=== PATIENT | female | born 1950 | race Caucasian/White ===

== ENCOUNTER → 2018-03-19 08:15 | Outpatient (CLI) | payer BC, SELFPAY ==
--- NOTE | 2018-03-19 08:50 | RAD_ITS ---
STUDY: X-RAY - ESOPHAGUS (BARIUM SWALLOW) WITH FLUOROSCOPY REASON FOR EXAM: Female, 67 years old. Dysphagia. TECHNIQUE: 14 view(s) of the esophagus were obtained following swallowing of barium. FLUOROSCOPY TIME (if supplied): (0:38) minutes/seconds COMPARISON: None. FINDINGS: There is no demonstrated esophageal foreign body. There is no demonstrated stricture or mucosal abnormality. Normal gastroesophageal junction, without a demonstrated hiatal hernia. There is atherosclerotic calcification of the aortic arch with tortuosity of the descending aorta. Normal visualized pulmonary parenchyma. There are diffuse degenerative changes of the visualized thoracic spine. RAD/Esophagus Only IMPRESSION: Normal plain film x-ray examination (barium swallow) of the esophagus. Electronically Signed: Goran Cifuentes MD at 13:54 EST Tel [phone], Service support ,
== END ==
PROVIDERS: Family Provider Family Medicine; PCP Family Medicine; Referring Provider Family Medicine; Visit Provider Family Medicine
DX: R13.10 Dysphagia, unspecified (principal)
CPT/HCPCS: 74220

== ENCOUNTER → 2018-04-30 11:25 | Outpatient (CLI) | payer BC, SELFPAY ==
[2018-04-30 15:16] LABS: Absolute Neutrophil Count 3.1 X10^3/uL (2.0-7.7); Basophil# 0.03 X10^3/uL; Basophil% 0.4 % (0-1); Eosinophil# 0.17 X10^3/uL; Eosinophils% 2.4 % (0-5); Hematocrit 49.4 % (37-47); Hemoglobin 15.6 g/dl (12.0-15.0); Lymphocyte % 46.7 % (19-41); Mean Corp Hgb Conc 31.6 g/gl (32-36); Mean Corpuscular Hgb 29.7 pg (27.0-32.0); Mean Corpuscular Volume 93.9 fL (81-99); Mean Platelet Vol. 10.3 fl (6.2-12.0); Monocyte# 0.48 X10^3/uL; Monocyte% 6.8 % (0-10); Neutrophil # 3.07 X10^3/uL (2.7-7.7); Neutrophil % 43.6 % (47-70); Platelet Count 352 K/mm3 (150-450); RBC Distribution Width CV 13.7 % (11.6-14.6); RBC Distribution Width SD 46.6 fl (35.1-43.9); Red Blood Count 5.26 M/mm3 (4.2-5.4); White Blood Count 7.1 K/mm3 (4.4-11.0)
[2018-04-30 15:19] LABS: POSITIVE COUNT NO; POSITIVE DIFFERENTIAL NO; POSITIVE MORPHOLOGY NO
[2018-04-30 15:32] LABS: Vitamin D,25 Hydroxy 16.2 ng/mL (29.95-100.01)
[2018-04-30 15:35] LABS: BUN 13 mg/dL (7-18); Creatinine, Serum 0.83 mg/dL (0.55-1.02); EST Glomerular Filtration Rate 73 mL/min (>60); Glucose 92 mg/dL (74-106)
[2018-04-30 15:36] LABS: Anion Gap 7 (5-15); BUN/Creat Ratio 15.7 RATIO (10-20); Calcium,Total 9.2 mg/dL (8.5-10.1); Chloride 106 mmol/L (98-107); Cholesterol 251 mg/dL (200); Est Glom Filt Rate - Afr Amer 89 mL/min (>60); High Density Lipoprotein 57 mg/dL; Potassium 3.9 mmol/L (3.5-5.1); Sodium Level 138 mmol/L (136-145); Thyroid Stim Hormone (TSH) 2.75 uIU/mL (0.358-3.74); Triglycerides 128 mg/dL; Very Low Density Lipoprotein 26 mg/dL (5-40)
[2018-05-02 17:14] LABS: HPV Reflexed? NOT INDICATED
== END ==
PROVIDERS: Family Provider Family Medicine; PCP Family Medicine; Referring Provider Family Medicine; Visit Provider Family Medicine
DX: Z01.419 Encounter for gynecological examination (general) (routine) without abnormal findings (principal); E78.00 Pure hypercholesterolemia, unspecified; R53.83 Other fatigue
CPT/HCPCS: 36415; 80048; 80061; 82306; 84443; 85025; 88175; G0145

== ENCOUNTER → 2018-06-01 15:35 | Outpatient (CLI) | payer BC, SELFPAY ==
--- NOTE | 2018-06-01 15:46 | BI_ITS ---
MAMMOGRAPHY - BILATERAL SCREENING REASON FOR EXAM: Female, 67 years old. Routine annual screening examination. PERTINENT HISTORY: Sister with breast cancer. TECHNIQUE: Digital bilateral breast keila (3D mammographic acquisition) in the CC and MLO projections. 2-D mediolateral oblique (MLO) and craniocaudad (CC) views of both breasts were obtained. CAD: Full Field Digital Mammography with Computer Added Detection was performed. COMPARISON: Comparison is made with prior study dated May 02, 2016 and April 13, 2015. FINDINGS: Breast Composition: There are scattered areas of fibroglandular density. There are no dominant masses or suspicious calcifications. No other significant abnormalities are identified. There has been no significant change since the prior study. BI/SCREENING MAMM (CAD), BILAT IMPRESSION: Stable bilateral screening mammogram. Yearly follow-up mammogram recommended. (A) ASSESSMENT CATEGORY: BIRADS Category 1: Negative. A letter regarding these results will be sent to the patient by the facility within 30 days. Approximately 10% of breast cancers are not detected by mammography. A normal mammogram should not delay biopsy of a clinically suspicious abnormality. [id number] Electronically Signed: Goran Cifuentes, at 8:50 EDT , Service support ,
== END ==
PROVIDERS: Family Provider Family Medicine; PCP Family Medicine; Referring Provider Family Medicine; Visit Provider Family Medicine
DX: Z12.31 Encounter for screening mammogram for malignant neoplasm of breast (principal); Z80.3 Family history of malignant neoplasm of breast
CPT/HCPCS: 77063; 77067

== ENCOUNTER 2018-10-18 10:08 | Emergency (ER) | payer BC, SELFPAY ==
[2018-10-18 10:09] VITALS: BP 166/84; PULSE 85; RESP 18; TEMP 36.4; O2SAT 97; BMI 35.0
--- NOTE | 2018-10-18 10:19 | CT_ITS ---
STUDY: CT ABDOMEN AND PELVIS WITHOUT CONTRAST REASON FOR EXAM: Female, 67 years old. Epigastric and abdominal pain. RADIATION DOSAGE (If Supplied By Facility): CTDIvol = ( 13.34 ) mGy, DLP = ( 667.94 ) mGycm TECHNIQUE: Transaxial images were obtained from the dome of the diaphragm to the symphysis pubis without oral contrast, and without intravenous contrast. Sagittal and coronal images were reconstructed. Individualized dose optimization techniques were used for this CT. COMPARISON: None. FINDINGS: Mild scarring and localized bronchiectasis in the posterior medial segment of the right lower lobe. There is a noncalcified 5 mm nodule in the peripheral lateral aspect of the left lower lobe. The visualized portions of the heart are within normal limits. Normal liver. Normal gallbladder and extrahepatic biliary system. Normal spleen. Normal pancreas. Normal bilateral adrenal glands. Normal right kidney. Normal left kidney. There is a small hiatal hernia. Normal small intestine. Normal colon. The appendix is visualized and appears normal. There is scattered atherosclerotic calcification of the abdominal aorta, without a demonstrated aneurysm. Normal inferior vena cava. There is borderline retroperitoneal lymphadenopathy with enlarged nodes no greater than 10mm in the short axis diameter. Normal urinary bladder. Normal abdominal wall. Normal osseous structures. CT/Abdomen/Pelvis without Cont IMPRESSION: Small hiatal hernia. 5 mm noncalcified nodule in the left lower lobe. Electronically Signed: Goran Cifuentes, at 11:30 EDT , Service support ,
--- NOTE | 2018-10-18 10:20 | EKG12_ITS ---
Test Reason : EPIGASTRIC PAIN Blood Pressure : / mmHG Vent. Rate : 074 BPM Atrial Rate : 074 BPM P-R Int : 196 ms QRS Dur : 088 ms QT Int : 400 ms P-R-T Axes : 061 -22 039 degrees QTc Int : 444 ms Normal sinus rhythm Normal ECG Confirmed by LONNIE DOE, MEREDITH ([id number]), proposal editor JUSTINO RODRIGUEZ ([id number]) on 10/22/2018 12:56:33 PM Referred By: CHUCK Confirmed By:URIAH FLEMING MD
--- NOTE | 2018-10-18 10:21 | ED.VIS.GEN ---
History of Present Illness Chief Complaint: Abd Pain Informant: Patient Onset: Hours - 11 Context: Gradual Onset Timing: Continuous Current Severity: Moderate Maximum Severity: Moderate Narrative: She presents with epigastric pain for the past 11 hours. It woke her up from sleep. She denies fever or chills. She does have some radiation into her back bilaterally. She does not describe a tearing sensation. She has no chest pain or shortness of breath. No recent fever or chills she denies any diarrhea or constipation. No urinary symptoms. She has no right upper quadrant pain. Most pain is in the epigastric region. It is achy and constant noncolicky. Past Medical History - Allergies and Home Meds Allergies/Adverse Reactions: Allergies No Known Allergies Allergy (Verified 10/18/18 10:10) Primary Care Physician: Eris Green MD [Primary Care Provider] - Past Medical History: None Surgical History: noncontributory Lives: Spouse/ Significant Other Smoking Status: Never smoker Alcohol: None Review of Systems All systems negative except as indicated General: Denies: Fever Cardiovascular: Denies: Chest pain Respiratory: Denies: Dyspnea, Cough Gastrointestinal: Reports: Abdominal pain, Nausea, Vomiting. Denies: Diarrhea, Constipation Genitourinary: Denies: Dysuria, Hematuria Musculoskeletal: Reports: Back pain. Denies: Neck pain, Extremity Pain Skin: Denies: Rash Neurological: Denies: Headache, Weakness Physical Exam Vital Signs/Narrative: Vital Signs Temp Pulse Resp BP Pulse Ox 10/18/18 10:09 97.5 F L 85 18 166/84 H 97 Inital Vital Signs reviewed: Yes General: Well nourished, Well developed, - - He is sitting comfortably on the cot Head: Normocephalic ENT: Dry mucous membranes Neck: Supple, Nontender Cardiovascular: Regular rate, Regular rhythm, No murmurs Respiratory: No distress, CTA bilaterally, Chest nontender Abdomen: Soft, - - There is epigastric tenderness without any guarding or rebound. No right upper quadrant pain. Negative Rae's. Back: - - There is bilateral tenderness in the mid back region I cannot reproduce it. CVA tenderness Extremities: Nontender, No edema Skin: Normal color, No rash Neurological: Alert, Normal Strength, Normal Sensation Psychological: Normal affect Diagnostic/Tx/Re-eval - Rhythm Strip Rhythm Strip: Sinus Rhythm Rate: 74 Ectopy: None - EKG Initial EKG Interpretation: Sinus Rhythm, No Acute Injury Pattern, - - nl ST. Normal TX intervals normal QTC. Interpreted by emergency doctor - Medical Decision Making Patient has an unremarkable work-up other than mild pancreatitis. After fluids she is significantly improved. I believe it is reasonable for her to be discharged. I had a long conversation with her she does not drink alcohol, there is no evidence of gallbladder disease, she does take quite a few multivitamins I told her to stop since there may be some that can cause pancreatitis. Otherwise I am not finding a source. I will refer to GI, she can stay on a liquid diet and I will discharge her in stable condition. She will receive analgesia and antiemetics for home. ED Disposition - Plan for ED Patient: Disposition: Home or Assisted Living Diagnosis: Pancreatitis Instructions: Understanding Pancreatitis Prescriptions: Oxycodone HCl/Acetaminophen [Percocet 10-325 mg Tablet] 1 tab PO Q6H PRN PRN 3 Days #12 tab PRN Reason: Pain Prescription Printed Ondansetron [Zofran Odt] 4 mg PO Q8H PRN PRN #12 tab PRN Reason: Nausea Prescription Printed Referrals: Sergio Monaco MD [NON-STAFF] - 3-5 Days
--- NOTE | 2018-10-18 10:34 | ED.RN ---
NO OLD EKG
[2018-10-18] MEDS: Morphine 4 MG/ML Syringe IV (10:37)
[2018-10-18] MEDS: Ondansetron 4 MG/2 ML Vial IV ×2 (10:37→11:55)
[2018-10-18 10:55] LABS: Absolute Lymphocyte Count 1.65 X10^3/uL (0.83-4.51); Absolute Neutrophil Count 7.7 X10^3/uL (2.0-7.7); Basophil# 0.03 X10^3/uL; Basophil% 0.3 % (0-1); Eosinophil# 0.02 X10^3/uL; Eosinophils% 0.2 % (0-5); Hematocrit 43.9 % (37-47); Hemoglobin 14.6 g/dL (12.0-15.0); Lymphocyte # 1.65 X10^3/ul (4.0); Lymphocyte % 16.8 % (19-41); Mean Corp Hgb Conc 33.3 g/dL (32-36); Mean Corpuscular Volume 90.3 fL (81-99); Mean Platelet Vol. 9.4 fl (6.2-12.0); Monocyte# 0.45 X10^3/uL; Monocyte% 4.6 % (0-10); NRBC Flagged by Analyzer 0 % (0-5); Neutrophil # 7.66 X10^3/uL (2.7-7.7); Neutrophil % 77.9 % (47-70); Platelet Count 292 K/mm3 (150-450); RBC Distribution Width SD 42.9 fl (35.1-43.9); Red Blood Count 4.86 M/mm3 (4.2-5.4); White Blood Count 9.8 K/mm3 (4.4-11.0)
[2018-10-18 11:15] LABS: ALB/GLOB Ratio 0.9 RATIO (0.9-2.4); AST(SGOT) 21 U/L (15-37); Alanine Aminotransfer ALT/SGPT 30 U/L (13-56); Albumin, Serum 3.5 g/dL (3.2-5.0); Alkaline Phosphatase 89 U/L (45-117); Anion Gap 7 (5-15); BUN 9 mg/dL (7-18); BUN/Creat Ratio 14.2 RATIO (10-20); Calcium,Total 8.9 mg/dL (8.5-10.1); Chloride 106 mmol/L (98-107); Creatinine, Serum 0.63 mg/dL (0.55-1.02); EST Glomerular Filtration Rate 99 mL/min (>60); Est Glom Filt Rate - Afr Amer 120 mL/min (>60); Estimated Creatinine Clearance 47.14 ml/min; Globulin 3.8 g/dL (2.2-4.2); Glucose 115 mg/dL (74-106); Lipase 908 U/L (73-393); Potassium 3.6 mmol/L (3.5-5.1); Protein, Total 7.3 g/dL (6.4-8.2); Sodium Level 139 mmol/L (136-145)
[2018-10-18] MEDS: HYDROmorphone 1 MG/ML Syringe IV (11:55)
[2018-10-18 12:45] VITALS: BP 162/74; PULSE 72; RESP 15
== END 2018-10-18 12:45 | disposition home or self-care (01) ==
PROVIDERS: Emergency Provider Emergency Medicine; Family Provider Family Medicine; PCP Family Medicine
DX: K85.90 Acute pancreatitis without necrosis or infection, unspecified (principal)
CPT/HCPCS: 74176; 80053; 83690; 84484; 85025; 93005; 96374; 96375; 96376; 99283; A4216; J2405

== ENCOUNTER → 2018-11-28 09:05 | Outpatient (CLI) | payer BC, SELFPAY ==
--- NOTE | 2018-11-28 09:09 | US_ITS ---
STUDY: ABDOMINAL ULTRASOUND REASON FOR EXAM: Female, 67 years old. Elevated LFTs TECHNIQUE: Transabdominal ultrasound was performed with real-time and static pardo scale imaging. TECHNICAL QUALITY: Adequate. COMPARISON: None. FINDINGS: Liver: The liver measures 17.4 cm. There is normal echogenicity of the liver. The bile ducts are within normal limits. There is hepatic color flow. The direction of portal flow is hepatopetal. There is no demonstrated mass lesion. Portal vein measurement: Gallbladder: There is a contracted gallbladder. The gallbladder wall measures 5 mm. There is a negative sonographic Rae's sign. There is no pericholecystic fluid. There are multiple echogenic structures within the gallbladder, consistent with multiple gallstones. Common Bile Duct (C.B.D.): The common bile duct measures 7 mm. Pancreas: Visualized pancreas is sonographically normal Spleen: Normal size of the spleen. The spleen measures 11 cm. Right Kidney: Normal size of the right kidney. The right kidney measures 11.9 x 4.8 x 4.4 cm cm. Normal renal cortex. The right cortex measures 1.8 cm. There is no demonstrated renal mass or cyst. There is no right hydronephrosis. Left Kidney: Normal size of the left kidney. The left kidney measures 10.2 x 4.2 x 5.3 cm. Normal renal cortex. The left cortex measures 1.4 cm. There is no demonstrated renal mass or cyst. There is no left hydronephrosis. Aorta: Tapers normally I.V.C.: The IVC is patent. There is no ascites. US/Abdomen Complete IMPRESSION: Contracted gallbladder containing shadowing gallstones and wall thickening. Findings are suspicious for cholecystitis.. Please correlate with lab results and surgical consultation recommended Electronically Signed: Kyree Escamilla MD at 17:00 EDT , Service support ,
== END ==
PROVIDERS: Referring Provider Internal Medicine Gastroenterology; Visit Provider Internal Medicine Gastroenterology
DX: R10.9 Unspecified abdominal pain (principal); K85.90 Acute pancreatitis without necrosis or infection, unspecified
CPT/HCPCS: 76700

== ENCOUNTER 2018-12-09 23:25 | Emergency (ER) | payer BC, SELFPAY ==
[2018-12-09 23:27] VITALS: BP 161/85; PULSE 77; RESP 15; TEMP 36.6; O2SAT 95; BMI 34.6
--- NOTE | 2018-12-10 00:16 | ED.VISSUMM ---
- ER Visit Summary Date of Service: 12/10/18 Chief Complaint: Abdominal pain History of Present Illness: The patient is a 67 F who presents with abdominal pain that became worse today. Patient states that she is scheduled to have a cholecystectomy on [address] Lozano. Patient states the pain became worse tonight. Patient states the pain is over the epigastric area and radiates into her back. Patient describes the pain as aching. Patient admits to some nausea and vomiting. Patient denies any hematemesis or coffee-ground emesis. Patient states she only had 2 episodes of vomiting tonight. Patient denies any diarrhea, melena, or hematochezia. Patient denies any dysuria or hematuria. Physical Examination: Vital signs are stable except for an elevated blood pressure of 161/85. Patient is afebrile. Patient is in no acute distress. Oral mucosa is pink and moist. Neck is supple. Trachea is midline. There is no JVD noted. Heart was regular rate and rhythm. Lungs are clear and equal bilaterally. Abdomen is soft. Bowel sounds are normal. There is epigastric tenderness. There is no rebound or guarding noted. Cranial nerves II through XII are intact. There are no focal motor or sensory deficits noted. Test Results: CBC, comprehensive metabolic profile, and lipase were obtained. ALT was slightly elevated at 71 and AST was slightly elevated at 47. The remaining labs are within normal limits. Emergency Department Course and Treatment: Patient was given a dose of morphine and Zofran here. Patient states her pain was improved but not resolved. Patient was advised to follow-up with her surgeon in 5 to 7 days. Patient was instructed to avoid fried, fatty, and greasy foods. Patient understood and was agreeable with the plan. Patient states she has Percocet at home but that upset her stomach. Patient will be given a prescription for [place]. Patient and family understood and were agreeable with the plan. All questions were answered. Disposition: Discharge home Impression: Epigastric abdominal pain This note was generated with [employer] dictation software. It may contain incorrect words, spelling, and punctuation that were not noted in review of the chart prior to signing ED Disposition - Plan for ED Patient: Disposition: Home or Assisted Living Diagnosis: Epigastric abdominal pain Instructions: BILIARY COLIC with Gallstone (Confirmed) Referrals: Care Physician,No Primary [Primary Care Provider] - Freddie Lozano MD [STAFF PHYSICIAN] - 5-7 Days
[2018-12-10] MEDS: Morphine 4 MG/ML Syringe IV ×2 (00:43→02:00)
[2018-12-10] MEDS: 0.9% Normal Saline 1,000 ML 1000 ML IV (00:43)
[2018-12-10] MEDS: Ondansetron 4 MG/2 ML Vial IV (00:43)
[2018-12-10 00:44] LABS: Absolute Lymphocyte Count 2.58 X10^3/uL (0.83-4.51); Absolute Neutrophil Count 7.5 X10^3/uL (2.0-7.7); Basophil# 0.04 X10^3/uL; Basophil% 0.4 % (0-1); Eosinophils% 1.8 % (0-5); Hematocrit 46.6 % (37-47); Lymphocyte # 2.58 X10^3/ul (4.0); Lymphocyte % 23.5 % (19-41); Mean Corp Hgb Conc 32.2 g/dL (32-36); Mean Corpuscular Hgb 29.8 pg (27.0-32.0); Mean Corpuscular Volume 92.5 fL (81-99); Mean Platelet Vol. 9.4 fl (6.2-12.0); Monocyte# 0.63 X10^3/uL; Monocyte% 5.7 % (0-10); NRBC Flagged by Analyzer 0 % (0-5); Neutrophil # 7.49 X10^3/uL (2.7-7.7); Neutrophil % 68.3 % (47-70); Platelet Count 334 K/mm3 (150-450); RBC Distribution Width CV 13.4 % (11.6-14.6); RBC Distribution Width SD 45.3 fl (35.1-43.9); Red Blood Count 5.04 M/mm3 (4.2-5.4)
[2018-12-10 00:57] LABS: ALB/GLOB Ratio 0.9 RATIO (0.9-2.4); AST(SGOT) 47 U/L (15-37); Alanine Aminotransfer ALT/SGPT 71 U/L (13-56); Albumin, Serum 3.7 g/dL (3.2-5.0); Alkaline Phosphatase 109 U/L (45-117); Anion Gap 8 (5-15); BUN 19 mg/dL (7-18); BUN/Creat Ratio 18.8 RATIO (10-20); Calcium,Total 9.6 mg/dL (8.5-10.1); Chloride 102 mmol/L (98-107); Creatinine, Serum 1.01 mg/dL (0.55-1.02); EST Glomerular Filtration Rate 58 mL/min (>60); Est Glom Filt Rate - Afr Amer 70 mL/min (>60); Estimated Creatinine Clearance 46.67 ml/min; Globulin 3.9 g/dL (2.2-4.2); Glucose 132 mg/dL (74-106); Lipase 142 U/L (73-393); Potassium 3.8 mmol/L (3.5-5.1); Protein, Total 7.6 g/dL (6.4-8.2); Sodium Level 140 mmol/L (136-145)
[2018-12-10 02:04] VITALS: BP 135/74; PULSE 75; PULSE 78; RESP 16; O2SAT 99
== END 2018-12-10 02:20 | disposition home or self-care (01) ==
PROVIDERS: Emergency Provider Emergency Medicine
DX: R10.13 Epigastric pain (principal); R11.2 Nausea with vomiting, unspecified; J34.89 Other specified disorders of nose and nasal sinuses; M54.9 Dorsalgia, unspecified
CPT/HCPCS: 80053; 83690; 85025; 96361; 96374; 96375; 96376; 99283; J7030; A4216; J2405

== ENCOUNTER 2018-12-25 08:53 | Emergency (ER) | payer BC, SELFPAY ==
[2018-12-25 08:54] VITALS: BP 154/90; PULSE 74; RESP 16; TEMP 36.3; O2SAT 96; BMI 34.3
--- NOTE | 2018-12-25 09:03 | EKG12_ITS ---
Test Reason : ABD PAIN Blood Pressure : / mmHG Vent. Rate : 072 BPM Atrial Rate : 072 BPM P-R Int : 186 ms QRS Dur : 100 ms QT Int : 416 ms P-R-T Axes : 059 -01 053 degrees QTc Int : 455 ms Normal sinus rhythm Low voltage QRS Incomplete right bundle branch block Borderline ECG Confirmed by GUIDO DOE, NATALIIA ([id number]), desk editor WILLIAM TOPETE ([id number]) on 12/28/2018 10:53:01 AM Referred By: ARUNA Confirmed By:NATALIIA LORA MD
[2018-12-25] MEDS: 0.9% Normal Saline 1,000 ML 125 ML IV (09:38)
[2018-12-25] MEDS: Ondansetron 4 MG/2 ML Vial IV ×2 (09:38→12:04)
[2018-12-25] MEDS: HYDROmorphone 1 MG/ML Syringe IV ×2 (09:40→12:04)
[2018-12-25 09:50] LABS: Absolute Lymphocyte Count 1.22 X10^3/uL (0.83-4.51); Absolute Neutrophil Count 7.9 X10^3/uL (2.0-7.7); Basophil# 0.02 X10^3/uL; Basophil% 0.2 % (0-1); Hematocrit 46.2 % (37-47); Hemoglobin 15.1 g/dL (12.0-15.0); Lymphocyte # 1.22 X10^3/ul (4.0); Lymphocyte % 12.9 % (19-41); Mean Corp Hgb Conc 32.7 g/dL (32-36); Mean Corpuscular Hgb 29.7 pg (27.0-32.0); Mean Corpuscular Volume 90.8 fL (81-99); Mean Platelet Vol. 9.5 fl (6.2-12.0); Monocyte# 0.24 X10^3/uL; Monocyte% 2.5 % (0-10); NRBC Flagged by Analyzer 0 % (0-5); Neutrophil # 7.88 X10^3/uL (2.7-7.7); Neutrophil % 83.6 % (47-70); Platelet Count 314 K/mm3 (150-450); RBC Distribution Width CV 12.9 % (11.6-14.6); RBC Distribution Width SD 43.3 fl (35.1-43.9); Red Blood Count 5.09 M/mm3 (4.2-5.4); White Blood Count 9.4 K/mm3 (4.4-11.0)
[2018-12-25 10:10] LABS: AST(SGOT) 19 U/L (15-37); Alanine Aminotransfer ALT/SGPT 21 U/L (13-56); Albumin, Serum 3.8 g/dL (3.2-5.0); Alkaline Phosphatase 93 U/L (45-117); Anion Gap 7 (5-15); BUN 11 mg/dL (7-18); BUN/Creat Ratio 16.3 RATIO (10-20); Calcium,Total 8.9 mg/dL (8.5-10.1); Chloride 104 mmol/L (98-107); Creatinine, Serum 0.67 mg/dL (0.55-1.02); EST Glomerular Filtration Rate 92 mL/min (>60); Est Glom Filt Rate - Afr Amer 112 mL/min (>60); Estimated Creatinine Clearance 47.14 ml/min; Globulin 3.9 g/dL (2.2-4.2); Glucose 134 mg/dL (74-106); Lipase 102 U/L (73-393); Potassium 3.6 mmol/L (3.5-5.1); Protein, Total 7.7 g/dL (6.4-8.2); Sodium Level 138 mmol/L (136-145)
--- NOTE | 2018-12-25 11:58 | ED.DCSUM_ITS ---
- ER Visit Summary Date of Service: 12/25/18 Chief Complaint: [Abdominal pain] History of Present Illness: The patient is a 67 F [presents the emergency department complaint of abdominal pain since yesterday. Patient describes the pain is epigastric and around both sides of her back. Patient has had nausea and vomited x2 with it. She denies any fever. Patient tells me that she is scheduled to have her gallbladder removed tomorrow at [facility] by Dr. Freddie Lozano. Patient states this is the same pain she is been dealing with for months. Patient within the last several months has had an ultrasound of the gallbladder that showed a thickened gallbladder wall and gallstones. Patient also had a CT scan of her abdomen and pelvis. Patient has no medical history otherwise. Patient currently rates her pain a 9 out of 10.] Physical Examination: [HEENT-PERRLA, EOMI. Cranial nerves II through XII grossly intact. TMs clear. Mucous membranes moist. No adenopathy. Cardiovascular-regular rate and rhythm without murmur or ectopy Lungs-clear to auscultation, chest wall stable without crepitus or subcu emphysema Abdomen-normoactive bowel sounds, soft. Patient has epigastric tenderness on palpation. Patient has some guarding. There is no rebound, rigidity, or perineal signs. Patient has a positive Rae sign. Extremities-intact ?4, normal range of motion, normal pulses, atraumatic] Test Results: [CBC with differential obtained was normal. EKG obtained arrival shows sinus rhythm with a ventricular rate of 71 bpm with incomplete right bundle branch block. Chemistries unremarkable. LFTs normal. Lipase was 102. Troponin is less than 0.15.] Emergency Department Course and Treatment: [She was medicated with Dilaudid and Zofran and she had good pain relief with pain going down to about a 3 out of 10. Patient was given 1 more milligram of Dilaudid 1 mg IV. I did discuss case with patient's surgeon who felt that if patient felt comfortable waiting till tomorrow for her surgeries and she could go home with her oxycodone. Patient is comfortable with going home and having her surgery done tomorrow. Patient is currently comfortable. She is had no further vomiting.] Treatment Plan: [The cystectomy to be performed tomorrow. Patient to use her hydrocodone for pain.] Disposition: [Discharged home in stable condition.] Impression: [Biliary colic Abdominal pain] This note was generated with [employer] dictation software. It may contain incorrect words, spelling, and punctuation that were not noted in review of the chart prior to signing ED Disposition - Plan for ED Patient: Referrals: Care Physician,No Primary [Primary Care Provider] -
--- NOTE | 2018-12-25 12:02 | ED.DEP ---
ED Disposition - Plan for ED Patient: Instructions: BILIARY COLIC with Gallstone (Confirmed) Referrals: Care Physician,No Primary [Primary Care Provider] - Freddie Lozano MD [STAFF PHYSICIAN] - 1 Day
--- NOTE | 2018-12-25 12:44 | ED.RN ---
REVIEWED D/C INSTRUCTIONS, FOLLOW UP CARE, AND S/S THAT WOULD WARRANT A RETURN TO THE ED WITH PT. PT VERBALIZED AN UNDERSTANDING AND DENIES FURTHER QUESTIONS FOR THIS RN. PT SKIN P/W/D, RESP EVEN AND UNLABORED, PT A&O X 3, NO DISTRESS NOTED. PT AMBULATED OUT OF ED, GAIT STEADY.
[2018-12-25 12:45] VITALS: BP 153/71; PULSE 79; RESP 16; O2SAT 94
== END 2018-12-25 12:46 | disposition home or self-care (01) ==
LOC: ED 09:27
PROVIDERS: Emergency Provider Emergency Medicine
DX: K80.50 Calculus of bile duct without cholangitis or cholecystitis without obstruction (principal); I45.10 Unspecified right bundle-branch block
CPT/HCPCS: 36415; 80053; 83690; 84484; 85025; 93005; 96361; 96374; 96375; 96376; 99284; J7030; A4216; J2405

== ENCOUNTER → 2019-12-06 15:04 | Outpatient (CLI) | payer MEDICARE, OTHER, SELFPAY ==
--- NOTE | 2019-12-06 15:06 | BI_ITS ---
MAMMOGRAPHY - BILATERAL SCREENING REASON FOR EXAM: Female, 68 years old. Routine annual screening examination. 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 2-D mediolateral oblique (MLO) and craniocaudad (CC) views of both breasts were obtained. CAD: Full Field Digital Mammography with Computer Added Detection was performed. COMPARISON: None. FINDINGS: Breast Composition: There are scattered areas of fibroglandular density. There are no dominant masses or suspicious calcifications. No other significant abnormalities are identified. BI/SCREEN MAMM (CAD) W/MAINOR BILAT IMPRESSION: Stable bilateral screening mammogram. Yearly follow-up mammogram recommended. (A) ASSESSMENT CATEGORY: BIRADS Category 2: Benign. A letter regarding these results will be sent to the patient by the facility within 30 days. Approximately 10% of breast cancers are not detected by mammography. A normal mammogram should not delay biopsy of a clinically suspicious abnormality. [id number] Electronically Signed: Bertha Don, at 13:47 EDT Tel , Service support ,
== END ==
PROVIDERS: PCP Family Medicine; Referring Provider Nurse Practitioner Family; Visit Provider Nurse Practitioner Family
DX: Z12.31 Encounter for screening mammogram for malignant neoplasm of breast (principal)
CPT/HCPCS: 77063; 77067

== ENCOUNTER → 2020-03-04 17:30 | Outpatient (CLI) | payer MEDICARE, OTHER, SELFPAY | PROVIDERS: PCP Family Medicine; Referring Provider Internal Medicine Gastroenterology; Visit Provider Internal Medicine Gastroenterology | DX: Z11.59 Encounter for screening for other viral diseases (principal) | CPT/HCPCS: 87635; C9803; U0003 ==

== ENCOUNTER → 2020-03-27 10:05 | Outpatient (CLI) | payer MEDICARE, OTHER, SELFPAY | PROVIDERS: PCP Family Medicine; Referring Provider Internal Medicine Gastroenterology; Visit Provider Internal Medicine Gastroenterology | DX: Z11.59 Encounter for screening for other viral diseases (principal) | CPT/HCPCS: 87635; C9803; U0003 ==

== ENCOUNTER → 2022-05-03 | Outpatient (CLI) | payer MEDICARE, OTHER, SELFPAY ==
[2022-05-03 10:01] LABS: Absolute Lymphocyte Count 2.53 X10^3/uL (0.83-4.51); Absolute Neutrophil Count 2.9 X10^3/uL (2.0-7.7); Basophil# 0.04 X10^3/uL; Basophil% 0.7 % (0-1); Eosinophils% 1.7 % (0-5); Hematocrit 47.5 % (37-47); Hemoglobin 15.4 g/dL (12.0-15.0); Lymphocyte # 2.53 X10^3/ul (0.83-4.51); Mean Corp Hgb Conc 32.4 g/dL (32-36); Mean Corpuscular Hgb 30.7 pg (27.0-32.0); Mean Corpuscular Volume 94.6 fL (81-99); Monocyte# 0.51 X10^3/uL; Monocyte% 8.5 % (0-10); NRBC Flagged by Analyzer 0 % (0-5); Neutrophil # 2.85 X10^3/uL (2.7-7.7); Neutrophil % 47.1 % (47-70); Platelet Count 342 K/mm3 (150-450); RBC Distribution Width CV 13.1 % (11.6-14.6); RBC Distribution Width SD 45.3 fl (35.1-43.9); Red Blood Count 5.02 M/mm3 (4.2-5.4)
[2022-05-03 10:38] LABS: AST(SGOT) 33 U/L (15-37); Alanine Aminotransfer ALT/SGPT 35 U/L (13-56); Albumin, Serum 3.6 g/dL (3.2-5.0); Alkaline Phosphatase 91 U/L (45-117); Anion Gap 4 (5-15); BUN 14 mg/dL (7-18); BUN/Creat Ratio 16.5 RATIO (10-20); Calcium,Total 9.3 mg/dL (8.5-10.1); Chloride 108 mmol/L (98-107); Cholesterol 238 mg/dL (200); Creatinine, Serum 0.85 mg/dL (0.55-1.02); EST Glomerular Filtration Rate 70 mL/min (>60); Est Glom Filt Rate - Afr Amer 85 mL/min (>60); Globulin 3.7 g/dL (2.2-4.2); Glucose 97 mg/dL (74-106); High Density Lipoprotein 49 mg/dL; Potassium 4.5 mmol/L (3.5-5.1); Protein, Total 7.3 g/dL (6.4-8.2); Sodium Level 140 mmol/L (136-145); Triglycerides 125 mg/dL; Very Low Density Lipoprotein 25 mg/dL (5-40)
== END | disposition home or self-care (01) ==
LOC: MFPLAB 08:23
PROVIDERS: PCP Family Medicine; Referring Provider Family Medicine; Visit Provider Family Medicine
DX: R53.83 Other fatigue (principal); E78.00 Pure hypercholesterolemia, unspecified
CPT/HCPCS: 36415; 80053; 80061; 84443; 85025

== ENCOUNTER 2023-09-26 10:27 | Emergency (ER) | payer MEDICARE, OTHER, SELFPAY ==
[2023-09-26 10:28] VITALS: BP 180/83; PULSE 75; RESP 16; TEMP 36.2; O2SAT 95; BMI 35.2
[2023-09-26 10:35] VITALS: O2SAT 98
--- NOTE | 2023-09-26 10:35 | EKG12_ITS ---
Test Reason : CHEST TIGHTNESS Blood Pressure : / mmHG Vent. Rate : 069 BPM Atrial Rate : 069 BPM P-R Int : 182 ms QRS Dur : 076 ms QT Int : 410 ms P-R-T Axes : 046 -31 029 degrees QTc Int : 439 ms Normal sinus rhythm Left axis deviation Low voltage QRS Inferior infarct , age undetermined Abnormal ECG Confirmed by GUIDO DOE, NATALIIA ([id number]), website/blog editor ROBERT OLVERA ([id number]) on 09/27/2023 10:17:59 AM Referred By: Confirmed By:NATALIIA LORA MD
[2023-09-26 10:55] LABS: Absolute Lymphocyte Count 2.74 X10^3/uL (0.83-4.51); Absolute Neutrophil Count 2.8 X10^3/uL (2.0-7.7); Basophil# 0.03 X10^3/uL; Basophil% 0.5 % (0-1); Eosinophil# 0.21 X10^3/uL; Eosinophils% 3.3 % (0-5); Hematocrit 47.4 % (37-47); Hemoglobin 15.8 g/dL (12.0-15.0); Lymphocyte # 2.74 X10^3/ul (0.83-4.51); Lymphocyte % 42.9 % (19-41); Mean Corp Hgb Conc 33.3 g/dL (32-36); Mean Corpuscular Volume 89.9 fL (81-99); Mean Platelet Vol. 9.5 fl (6.2-12.0); Monocyte% 9.4 % (0-10); NRBC Flagged by Analyzer 0 % (0-5); Neutrophil # 2.78 X10^3/uL (2.7-7.7); Neutrophil % 43.6 % (47-70); Platelet Count 304 K/mm3 (150-450); RBC Distribution Width CV 12.8 % (11.6-14.6); RBC Distribution Width SD 42.5 fl (35.1-43.9); Red Blood Count 5.27 M/mm3 (4.2-5.4); White Blood Count 6.4 K/mm3 (4.4-11.0)
--- NOTE | 2023-09-26 10:56 | RAD_ITS ---
STUDY: X-RAY CHEST REASON FOR EXAM: Female, 72 years old. chest pain TECHNIQUE: Single AP portable view of the chest. COMPARISON: None. FINDINGS: The lungs are clear and expanded. There is no demonstrated pleural abnormality. Normal size heart. Normal mediastinum and jerri. Normal visualized pulmonary arteries. Normal visualized aortic arch and descending thoracic aorta. Normal visualized thoracic spine. Normal visualized ribs, clavicles, and shoulders. There is no demonstrated abnormality of the visualized soft tissue structures of the upper abdomen. RAD/Chest 1 View (Portable) IMPRESSION: Normal x-ray examination of the chest. Electronically Signed: Freddie Flores MD at 11:26 EDT ,
--- NOTE | 2023-09-26 10:59 | EDS_ITS ---
HPI History of Present Illness Chief Complaint: Chest Pain Informant: patient Onset/Context/Timing Onset: Days Activity at onset: gradual Timing: Intermittent Quality: Positive for Dull Location: Right Chest Maximum Severity: Mild Worsened By: Nothing Relieved By: - (Improved by putting direct pressure on her chest wall. Denies any fall injury or trauma.) Associated Symptoms: Negative for Nausea, Vomiting, Dyspnea, Cough, Fever, Lightheadedness, Acid Reflux or Palpitations Narrative Narrative: 72-year-old female with history of high cholesterol and kidney stones. No cardiac history. States the last week or so she has had intermittent left-sided chest pain. Not specifically associated with exertion. No new or worsening exertional dyspnea. No history of DVT or PE risk factors. No calf pain or swelling. No hemoptysis. Denies any fall injury or trauma to her chest when sitting feels better if she puts direct pressure on her left chest wall. Prior Similar Symptoms: Yes Recent Illness/Hospitalization: No CVD Risk Factors: Negative for Hypertension, Diabetes or Hypercholesterolemia PE Risk Factors: Negative for Recent Travel/Surgery, Recent Immobilization, Prior DVT or PE, Cancer or OCP + Smoking + >/=35 TAD Risk Factors: Negative for Marfan's Syndrome PFSH [facility] Home Medications ?Medication ?Instructions ?Recorded ?Last Taken ?Type aspirin 81 mg chewable tablet 81 mg PO DAILY@0800 10/18/18 Unknown History multivitamin 1 ea PO DAILY 10/18/18 Unknown History ondansetron 4 mg disintegrating 4 mg PO Q8H PRN PRN Nausea #12 tabs 10/18/18 Unknown Rx tablet oxycodone-acetaminophen 10 mg-325 1 ea PO Q6H PRN PRN Pain Score 12/09/18 Unknown History mg tablet 6-12/13 Allergy/AdvReac Type Severity Reaction Status Date / Time No Known Allergies Allergy Verified 09/26/23 10:30 Social History Smoking Status: Never smoker ROS ROS ED ROS Narrative Left-sided chest pain. Not exertional. No dyspnea. Review of Systems ROS Unobtainable: Denies due to encephalopathy Constitutional Constitutional ED: Denies chills or fever(s) Eyes Eyes: Reports none ENT ENT ED: Denies ear pain Cardiovascular Cardiovascular: Reports as per HPI and chest pain; Denies palpitations or racing heartbeat Respiratory/Chest Respiratory/Chest: Denies cough, dyspnea or dyspnea on exertion Gastrointestinal Gastrointestinal: Denies abdominal pain Genitourinary Genitourinary ED: Denies dysuria or hematuria Musculoskeletal Musculoskeletal: Denies arthralgias Integumentary Denies abscess Neurologic Neurologic: Denies headache(s) Psychiatric Psychiatric: Denies anxiety Endocrine Endocrinology: Denies cold intolerance Hematologic/Lymphatic Hematologic/Lymphatic: Denies easy bleeding Allergic/Immunologic Allergic/Immunologic ED: Denies mouth swelling or tongue swelling EXAM Physical Exam Narrative Exam Narrative: 70-year-old female no acute distress vital signs stable afebrile. Pulse ox 95% on room air no hypoxia. H EENT exam unremarkable. Neck nontender JVD. Lungs clear to auscultation bilaterally. Heart regular rate and rhythm no murmur. Chest wall there is no reproducible pain. No discoloration. No redness or warmth. No bruising. Ribs nontender. Abdomen soft nontender. Moving all 4 extremities. Calves are nontender without edema or cords. 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 Equal and symmetrical brisk radial pulses. Back nontender. Neurologically she is awake alert no focal motor deficits. Const Vital Signs: 09/26/23 10:28 09/26/23 10:35 Temperature 97.2 F L Temperature Source Temporal Pulse Rate 75 Respiratory Rate 16 Blood Pressure 180/83 H Blood Pressure Mean 115 Pulse Ox 95 98 Oxygen Delivery Method Room Air Room Air Positive well nourished and well developed; Negative for cachectic, contractures or unkempt General Appearance ED: well developed and NAD; Negative for unkempt, cachectic, contractures or pallor Nutritional Appearance: Negative for cachectic HEENT Reports moist mucous membranes normocephalic and atraumatic; Negative for trauma or tenderness Eyes PERRL and EOMs intact bilaterally General Eye ED: Negative for pale conjunctiva Neck no lymphadenopathy, supple and no JVD General: Negative for tenderness Chest Wall inspection of chest normal and palpation of chest normal Chest: Negative for tenderness Resp normal respiratory effort and clear to auscultation bilaterally Effort and Inspection: Negative for respiratory distress or pain with movement Auscultation: Negative for rales, rhonchi, wheezes or diminished lung sounds Cardio regular rate, regular rhythm, S1 normal heart sound, S2 normal heart sound and no murmurs Rate: Negative for bradycardia or tachycardic Rhythm: Negative for abnormal rhythm Peripheral Pulses: pulses 2+ throughout GI normal to inspection, nondistended, normoactive bowel sounds, soft to palpation, non-tender, non-distended and no masses Back/Spine no CVA tenderness and no thoracic nor lumbar tenderness General Back: Negative for CVA tenderness Cervical Spine: Negative for cervical spine tenderness Extremity normal to inspection General Extremety ED: Negative for edema, pulses abnormal or tenderness General Extremity: Negative for edema or pulses abnormal Neuro oriented x3, CN's II-XII intact bilaterally and no sensory deficits noted Sensorium / Orientation: awake, alert, oriented to person, oriented to place and oriented to time; Negative for confused, lethargic or stuporous Motor Exam: strength 5/5 throughout Psych mental status grossly normal Appearance: Negative for unkempt Attitude: No agitated Mood & Affect: Negative for depressed, anxious or tearful Skin no rashes or lesions noted and no wounds General Skin Exam: Negative for jaundice or pallor Rashes: No rashes noted Trauma: Negative for abrasion or laceration Heart Score History: Slightly/Non-Suspicious ECG: Normal Age: >/= 65 years Risk Factors: 1 or 2 Risk Factors Troponin: </= Normal Limit Score: 3 MDM MDM MDM Narrative Medical decision making narrative: 72-year-old female with atypical nonexertional chest discomfort is improved when she puts her hand on her chest wall. There is no reproducible pain. She undergo a cardiac workup. My suspicion of this being cardiac is actually low. Discussed no history of DVT or PE and no risk factors. She has no history of cardiac disease. She had a CAT scan done several years ago and showed a low calcium score she informed. There is no family history of cardiac disease before the age of 70. She is a non-smoker. Repeat exam patient doing well at 12:12 PM. We went over test results. Given the atypical nature of her pain. Is not exertional. Her workup is negative. I do not think she needs a second troponin because she has had this intermittently for a week. She will be discharged home to follow-up with primary care physician. I do not feel that she needs admitted. History & Record Review Discussion w/independent historian: Patient and Family Additional record(s) reviewed:: Prior inpatient record, Prior outpatient record, Prior ED visit, Prior labs and No prior records Lab Data Attestation: I reviewed the patient's lab results. Lab results narrative: CBC shows a white count of 6 H&H of 15 and 47. Platelets 304. Chemistry is unremarkable gap 6. Normal BUN and creatinine. Glucose 109. Troponin is 3. Chest x-ray normal. EKG unremarkable. Labs: Laboratory Results - last 24 hr 09/26/23 10:47 WBC 6.4 RBC 5.27 Hgb 15.8 H Hct 47.4 H MCV 89.9 MCH 30.0 MCHC 33.3 RDW Std Deviation 42.5 RDW Coeff of Iman 12.8 Plt Count 304 MPV 9.5 Immature Gran % (Auto) 0.300 Neut % (Auto) 43.6 L Lymph % (Auto) 42.[address] [place] % (Auto) 9.4 Eos % (Auto) 3.3 Baso % (Auto) 0.5 Absolute Neuts (auto) 2.8 Absolute Lymphs (auto) 2.74 Nucleated RBC % 0 Sodium 139 Potassium 4.4 Chloride 109 H Carbon Dioxide 24.0 Anion Gap 6 BUN 13 Creatinine 0.77 Estim Creat Clear Calc 72.84 Est GFR (MDRD) Af Amer 95 Est GFR (MDRD) Non-Af 78 BUN/Creatinine Ratio 16.9 Glucose 109 H Calcium 9.3 Troponin I High Sens 3 Radiography Chest X-Ray - ED: 1 View, Read by ED Physician, Read by Radiologist, Normal, Heart, Lungs, Mediastinum, Bony Structures, No Acute Disease and Chronic Changes Diagnostic Testing: Clinical Impression(s) from Imaging Studies Chest X-Ray 09/26/23 10:56 IMPRESSION: Normal x-ray examination of the chest. Electronically Signed: Freddie Flores MD at 11:26 EDT , Chest x-ray, portable, single view interpreted by by myself and radiology shows no acute abnormality. Normal cardiac silhouette. Normal mediastinum. Normal lung padgett. Rhythm Strip Rhythm Strip: Sinus Rhythm Rate: 69 Ectopy: None EKG Initial EKG: Attestation: I personally reviewed and interpreted this EKG as follows: Interpretation: Sinus Rhythm and No Acute Injury Pattern Comments: Normal sinus rhythm rate 72. No acute signs of MS, ischemia or dysrhythmia. Discharge Plan Triage Chief Complaint: Chest Pain ED Provider: Chris Styles Dx/Rx/DC Orders Clinical Impression: Chest pain Instructions: ED Chest Pain, Uncertain Cause Prescriptions: No Action multivitamin 1 EACH tablet 1 ea PO DAILY aspirin 81 MG tablet,chewable 81 mg PO DAILY@0800 ondansetron 4 MG tablet 4 mg PO Q8H PRN PRN (Reason: Nausea) Qty: 12 0RF oxycodone-acetaminophen 1 EACH tablet 1 ea PO Q6H PRN PRN (Reason: Pain Score 6-10/10) Primary Care Provider: Lindsay Kunz Referrals: Lindsay Kunz MD [Primary Care Provider] - 1 Week Activity Restrictions/Additional Instructions: Your exam, EKG, chest x-ray and labs are unremarkable. No signs of a heart attack. Follow-up with your doctor to ensure you are improving. Return if feeling a lot worse. Motrin and/or Tylenol for pain Print Language: Armenian Disposition Disposition: Home, Self Care
[2023-09-26 11:12] LABS: Anion Gap 6 (5-15); BUN 13 mg/dL (7-18); BUN/Creat Ratio 16.9 RATIO (10-20); Calcium,Total 9.3 mg/dL (8.5-10.1); Chloride 109 mmol/L (98-107); Creatinine, Serum 0.77 mg/dL (0.55-1.02); EST Glomerular Filtration Rate 78 mL/min (>60); Est Glom Filt Rate - Afr Amer 95 mL/min (>60); Estimated Creatinine Clearance 72.84 ml/min; Glucose 109 mg/dL (74-106); Potassium 4.4 mmol/L (3.5-5.1); Sodium Level 139 mmol/L (136-145); Troponin-I HS 3 pg/mL (3.0-54.0)
[2023-09-26 12:18] VITALS: BP 119/65; PULSE 68; RESP 18; TEMP 36.6; O2SAT 99
== END 2023-09-26 12:31 | disposition home or self-care (01) ==
PROVIDERS: Emergency Provider Emergency Medicine; PCP Family Medicine; Visit Provider Emergency Medicine
DX: R07.9 Chest pain, unspecified (principal)
CPT/HCPCS: 71045; 80048; 84484; 85025; 93005; 99283; A4216

== ENCOUNTER → 2023-10-31 | Outpatient (CLI) | payer MEDICARE, OTHER, SELFPAY ==
--- NOTE | 2023-10-31 08:51 | BD_ITS ---
STUDY: DUAL ENERGY X-RAY ABSORPTIOMETRY / DXA REASON FOR EXAM: Female, 72 years old. Z78.0 TECHNIQUE: Bone Mineral Density (BMD) measurements of lumbar spine and bilateral hips were obtained. COMPARISON: None. FINDINGS: Lumbar Spine (L1-L4): g/cm2 (0.72) / T-score (-2.9) / Z-score (-0.5) Findings are suggestive of osteoporosis with a high fracture risk. Left Femur Total: g/cm2 (0.696) / T-score (-2.0) / Z-score (-0.4) Left Femoral Neck: g/cm2 (0.675) / T-score (-1.6) / Z-score (0.4) Right Femur Total: g/cm2 (0.713) / T-score (-1.9) / Z-score (-0.2) Right Femoral Neck: g/cm2 (0.697) / T-score (-1.4) / Z-score (0.6) BD/Dexa Bone Density Study IMPRESSION: The patient is considered osteoporotic as outlined below according to World Michael Organization (WHO) criteria with a high fracture risk. Reference Information: The T-score is the number of standard deviations above or below the standard which is normal for young adults at their peak bone mineral density. The World Health Organization (WHO) interprets the T-scores as follows: Above -1 Normal bone density Between -1 and -2.5 Osteopenia Equal to / or below -2.5 Osteoporosis As a practical clinical guideline, osteopenia may be graded as follows: Mild -1 through -1.5 Moderate -1.6 through -2.0 Severe -2.1 through -2.4 The Z-score is the number of standard deviations above or below age-matched controls. A Z-score of less than -1.5 would be considered abnormal. References: 1. NIH Osteoporosis and Related Bone Diseases www osteo.org 2. International Society for Clinical Densitometry www iscd.org 3. National Osteoporosis Foundation www nof.org Electronically Signed: Goran Cifuentes MD at 9:32 EDT ,
== END | disposition home or self-care (01) ==
LOC: OPBD 08:44
PROVIDERS: PCP Family Medicine; Referring Provider Family Medicine; Visit Provider Family Medicine
DX: Z00.00 Encounter for general adult medical examination without abnormal findings (principal); Z78.0 Asymptomatic menopausal state
CPT/HCPCS: 77080